=== PATIENT | male | born 1985 | race Hispanic/Latino ===

== ENCOUNTER 2018-05-28 14:27 | Emergency (ER) | payer BC ==
[2018-05-28] MEDS ORDERED: CLINDAMYCIN HCL 150 MG CAP ONE (15:30)
--- NOTE | 2018-05-28 16:23 | ER ---
Nurse's Notes [facility] Name: Kane Madsen Age: 33 yrs Sex: Male : 1985 Arrival Date: 05/28/2018 Time: 14:29 Bed 27 Private MD: None, None Diagnosis: Cellulitis of right lower limb Presentation: 05/28 14:38 Presenting complaint: Patient states: Abscess to right lateral calf for 2 days with aj redness and inflammation. Denies fever. Transition of care: patient was not received from another setting of care. Onset of symptoms was May 26, 2018. Risk Assessment: Do you want to hurt yourself or someone else? Patient reports no desire to harm self or others. Initial Sepsis Screen: Does the patient meet any 2 criteria? No. Patient's initial sepsis screen is negative. Does the patient have a suspected source of infection? No. Patient's initial sepsis screen is negative. Care prior to arrival: None. 14:38 Method Of Arrival: Ambulatory aj 14:38 Acuity: COREY 3 aj Triage Assessment: 14:40 General: Appears in no apparent distress. comfortable, Behavior is calm, cooperative, aj appropriate for age. Pain: Complains of pain in lateral aspect of right calf. Neuro: Level of Consciousness is awake, alert, obeys commands, Oriented to person, place, time, situation, Appropriate for age. Respiratory: Airway is patent Respiratory effort is even, unlabored, Respiratory pattern is regular, symmetrical. Derm: Skin is intact, is healthy with good turgor, Skin is pink, warm \\T\\ dry. normal, Abscess located on lateral aspect of right calf is dime sized, has no drainage, is red, is raised. Historical: - Allergies: 14:40 Sulfa (Sulfonamide Antibiotics); aj - Home Meds: 14:40 None [Active]; aj - PMHx: 14:40 "High Uric Acid"; aj - PSHx: 14:40 None; aj - Immunization history:: Last tetanus immunization: up to date. - Social history:: Smoking status: Patient/guardian denies using tobacco, Patient uses alcohol, weekly. - Ebola Screening: : Patient negative for fever greater than or equal to 101.5 degrees Fahrenheit, and additional compatible Ebola Virus Disease symptoms Patient denies exposure to infectious person Patient denies travel to an Ebola-affected area in the 21 days before illness onset No symptoms or risks identified at this time. Screenin:16 Abuse screen: Denies threats or abuse. Denies injuries from another. Nutritional mg2 screening: No deficits noted. Tuberculosis screening: No symptoms or risk factors identified. Fall Risk None identified. Assessment: 15:17 General: Appears in no apparent distress. comfortable, Behavior is calm, cooperative. mg2 Pain: Complains of pain in right leg and lateral aspect of right calf Pain does not radiate. Pain currently is 5 out of 10 on a pain scale. Quality of pain is described as aching, Pain began gradually, 2-3 days ago. Is intermittent. Neuro: Level of Consciousness is awake, alert, obeys commands, Oriented to person, place, time, situation. Cardiovascular: Capillary refill < 3 seconds Patient's skin is warm and dry. Respiratory: Airway is patent Respiratory effort is even, unlabored, Respiratory pattern is regular, symmetrical. GI: No signs and/or symptoms were reported involving the gastrointestinal system. : No signs and/or symptoms were reported regarding the genitourinary system. EENT: No signs and/or symptoms were reported regarding the EENT system. Derm: Wound noted lateral aspect of right calf Other: raised and tender/ cellulitis. Musculoskeletal: Circulation, motion, and sensation intact. Capillary refill < 3 seconds, Swelling present in right leg and lateral aspect of right calf. 16:07 Reassessment: Patient appears in no apparent distress at this time. Patient and/or mg2 family updated on plan of care and expected duration. Pain level reassessed. Patient is alert, oriented x 3, equal unlabored respirations, skin warm/dry/pink. Vital Signs: 14:40 BP 139 / 91; Pulse 85; Resp 18; Temp 99.1; Pulse Ox 97% on R/A; Weight 132.9 kg; Height aj 5 ft. 11 in. (180.34 cm); 16:07 BP 128 / 81; Pulse 95; Resp 18; Pulse Ox 100% on R/A; mg2 14:40 Body Mass Index 40.86 (132.90 kg, 180.34 cm) aj ED Course: 14:29 Patient arrived in ED. mr 14:29 None, None is Private Physician. mr 14:39 Triage completed. aj 14:40 Arm band placed on left wrist. Patient placed in waiting room, Patient notified of wait aj time. 15:05 Chanda Temple FNP-C [facility]. kb 15:05 Gregg Rodriguez MD is Attending Physician. kb 15:07 David Echeverria, RN is Primary Nurse. mg2 15:16 No provider procedures requiring assistance completed. Patient did not have IV access mg2 during this emergency room visit. 15:20 Patient has correct armband on for positive identification. mg2 16:55 US Extremity Venous Unilateral Ltd In Process Unspecified. EDMS Administered Medications: 15:26 Drug: Clindamycin 300 mg Route: PO; tl3 16:32 Follow up: Response: No adverse reaction mg2 Outcome: 16:23 Discharge ordered by MD. kb 16:31 Discharged to home ambulatory, with family. mg2 16:31 Condition: stable 16:31 Discharge instructions given to patient, family, Instructed on discharge instructions, follow up and referral plans. medication usage, Demonstrated understanding of instructions, follow-up care, medications. 16:32 Patient left the ED. mg2 Addendum: 05/31/2018 09:16 Addendum: Culture Results: Positive wound culture. No further action required. Bacteria i w sensitive to prescribed antibiotic. Signatures: Dispatcher [employer] EDMS Chanda Temple, DEJA AGRISCIENCE TECHNOLOGY INSTRUCTOR-Daniela Ramirez RN Lindsay Alexandre Irene, Elsa Abernathy RN, RN RN tl3 David Echeverria, RN RN mg2
--- NOTE | 2018-05-28 16:24 | EDPHYS ---
Physician Documentation [facility] Name: Kane Madsen Age: 33 yrs Sex: Male : 1985 Arrival Date: 05/28/2018 Time: 14:29 Bed 27 Private MD: None, None ED Physician Gregg Rodriguez HPI: 05/28 15:32 This 33 yrs old Male presents to ER via Ambulatory with complaints of Abscess. kb 15:32 The patient presents with an abscess of the lateral aspect of right calf. Description: kb draining, erythematous, hot, swollen. Onset: The symptoms/episode began/occurred 2 day(s) ago. Possible cause(s): unknown. Associated signs and symptoms: Pertinent positives: drainage, erythema, swelling, Pertinent negatives: foreign body sensation, fever, headache, nausea, shortness of breath, vomiting. Modifying factors: the symptoms are alleviated by nothing, the symptoms are aggravated by pressure, squeezing the lesion and expressing the contents. Severity of symptoms: At their worst the symptoms were moderate, in the emergency department the symptoms are unchanged. The patient has not experienced similar symptoms in the past. The patient has not recently seen a physician. Historical: - Allergies: 14:40 Sulfa (Sulfonamide Antibiotics); aj - Home Meds: 14:40 None [Active]; aj - PMHx: 14:40 "High Uric Acid"; aj - PSHx: 14:40 None; aj - Immunization history:: Last tetanus immunization: up to date. - Social history:: Smoking status: Patient/guardian denies using tobacco, Patient uses alcohol, weekly. - Ebola Screening: : Patient negative for fever greater than or equal to 101.5 degrees Fahrenheit, and additional compatible Ebola Virus Disease symptoms Patient denies exposure to infectious person Patient denies travel to an Ebola-affected area in the 21 days before illness onset No symptoms or risks identified at this time. ROS: 15:32 Constitutional: Negative for fever, chills, and weight loss, Cardiovascular: Negative kb for chest pain, palpitations, and edema, Respiratory: Negative for shortness of breath, cough, wheezing, and pleuritic chest pain, Abdomen/GI: Negative for abdominal pain, nausea, vomiting, diarrhea, and constipation, Back: Negative for injury and pain, MS/Extremity: Negative for injury and deformity, Neuro: Negative for headache, weakness, numbness, tingling, and seizure. 15:32 Skin: Positive for abscess, erythema, swelling, of the lateral aspect of right calf. Exam: 15:32 Constitutional: This is a well developed, well nourished patient who is awake, alert, kb and in no acute distress. Head/Face: Normocephalic, atraumatic. Chest/axilla: Normal chest wall appearance and motion. Nontender with no deformity. No lesions are appreciated. Cardiovascular: Regular rate and rhythm with a normal S1 and S2. No gallops, murmurs, or rubs. Normal PMI, no JVD. No pulse deficits. Respiratory: Lungs have equal breath sounds bilaterally, clear to auscultation and percussion. No rales, rhonchi or wheezes noted. No increased work of breathing, no retractions or nasal flaring. Abdomen/GI: Soft, non-tender, with normal bowel sounds. No distension or tympany. No guarding or rebound. No evidence of tenderness throughout. Back: No spinal tenderness. No costovertebral tenderness. Full range of motion. MS/ Extremity: Pulses equal, no cyanosis. Neurovascular intact. Full, normal range of motion. Neuro: Awake and alert, GCS 15, oriented to person, place, time, and situation. Cranial nerves II-XII grossly intact. Motor strength 5/5 in all extremities. Sensory grossly intact. Cerebellar exam normal. Normal gait. 15:32 Skin: abscess, that is small, with drainage, that is purulent, with surrounding cellulitis, that is moderate. Vital Signs: 14:40 BP 139 / 91; Pulse 85; Resp 18; Temp 99.1; Pulse Ox 97% on R/A; Weight 132.9 kg; Height aj 5 ft. 11 in. (180.34 cm); 16:07 BP 128 / 81; Pulse 95; Resp 18; Pulse Ox 100% on R/A; mg2 14:40 Body Mass Index 40.86 (132.90 kg, 180.34 cm) aj MDM: 15:05 Patient medically screened. kb 15:32 Data reviewed: vital signs, nurses notes. Data interpreted: Pulse oximetry: on room air kb is 97 %. Interpretation: normal. 16:22 Counseling: I had a detailed discussion with the patient and/or guardian regarding: the kb historical points, exam findings, and any diagnostic results supporting the discharge/admit diagnosis, radiology results, the need for outpatient follow up, a family practitioner, to return to the emergency department if symptoms worsen or persist or if there are any questions or concerns that arise at home. 05/28 15:19 Order name: Wound Culture kb 05/28 15:19 Order name: US Extremity Venous Unilateral Ltd kb Administered Medications: 15:26 Drug: Clindamycin 300 mg Route: PO; tl3 16:32 Follow up: Response: No adverse reaction mg2 Disposition: 17:45 Co-signature as Attending Physician, Gregg Rodriguez MD. Disposition: 05/28/18 16:23 Discharged to Home. Impression: Cellulitis of right lower limb. - Condition is Stable. - Discharge Instructions: Cellulitis, Adult, [id number]. - Prescriptions for Clindamycin HCl 300 mg Oral Capsule - take 1 capsule by ORAL route every 6 hours for 10 days; 40 capsule. - Medication Reconciliation Form, Thank You Letter, Antibiotic Education, Prescription Opioid Use form. - Follow up: Emergency Department; When: As needed; Reason: Worsening of condition. Follow up: Private Physician; When: 2 - 3 days; Reason: Recheck today's complaints, Continuance of care, Re-evaluation by your physician. Signatures: Dispatcher [employer] EDChanda Hernandez, BILINGUAL INSTRUCTOR-C BILINGUAL INSTRUCTOR-Kendallb Daniela Leonardo, RN Gregg Castellon MD MD Elsa Huggins, DEVON RN tl3 David Echeverria RN RN mg2 Corrections: (The following items were deleted from the chart) 16:32 16:23 05/28/2018 16:23 Discharged to Home. Impression: Cellulitis of right lower limb. mg2 Condition is Stable. Forms are Medication Reconciliation Form, Thank You Letter, Antibiotic Education, Prescription Opioid Use. Follow up: Emergency Department; When: As needed; Reason: Worsening of condition. Follow up: Private Physician; When: 2 - 3 days; Reason: Recheck today's complaints, Continuance of care, Re-evaluation by your physician. kb
--- NOTE | 2018-05-28 17:16 | RAD REPORT ---
EXAM DESCRIPTION: USExtremity Venous Uni Ltd05/28/2018 4:56 pm CLINICAL HISTORY: Right leg pain and swelling. COMPARISON: None. FINDINGS: Right common femoral, superficial femoral, popliteal and right posterior tibial veins are compressible and demonstrate augmentation. Doppler demonstrates good flow. IMPRESSION: No evidence of deep venous thrombosis involving the right lower extremity.
== END 2018-05-28 16:32 | disposition home or self-care (01) ==
LOC: ER 14:27
DX: L03.115 Cellulitis of right lower limb (principal); Z88.2 Allergy status to sulfonamides
CPT/HCPCS: 87070; 87077; 87186; 87205; 93971; 99283

== ENCOUNTER 2018-07-04 10:20 | Emergency (ER) | payer BC ==
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
== END 2018-07-04 13:29 | disposition home or self-care (01) ==
LOC: ER 10:20
DX: S90.31XA Contusion of right foot, initial encounter (principal); V29.9XXA Motorcycle rider (driver) (passenger) injured in unspecified traffic accident, initial encounter; Z88.2 Allergy status to sulfonamides; Z72.0 Tobacco use
CPT/HCPCS: 99283